=== PATIENT | female | born 1960 | race Hispanic/Latino ===

== ENCOUNTER 2016-10-15 10:30 | Outpatient (CLI) | payer BC ==
[2016-10-15 11:23] LABS: #Basophils 0.1 thou/uL (0.0-0.2); #Eosinphils 0.4 thou/uL (0.0-0.7); #Lymphocytes 1.5 thou/uL (1.20-3.40); #Monocytes 0.5 thou/uL (0.11-0.59); #Neutrophils 3.6 thou/uL (1.40-6.50); %Basophils 1.2 % (0.0-1.0); %Lymphocytes 24.2 % (21.0-51.0); %Monocytes 7.9 % (0.0-10.0); %Neutrophils 59.7 % (42.0-75.0); Hemoglobin 14.1 g/dL (12.0-16.0); Mean Corpuscular HGB CONC 33.7 g/dL (32.0-36.0); Mean Corpuscular Hemoglobin 31.1 pg (27.0-31.0); Mean Corpuscular Volume 92.3 fl (81.0-99.0); Mean Platelet Volume 7.6 fL (7.4-10.4); Platelet Count 199 thou/uL (130-400); RBC Distribution Width 11.8 % (11.5-14.5); Red Blood Cell (RBC) Count 4.53 mill/uL (4.20-5.40); White Blood Cell (WBC) Count 6.1 thou/uL (4.8-10.8)
[2016-10-15 11:40] LABS: ALT (SGPT) 38 U/L (8-55); AST (SGOT) 26 U/L (5-34); Albumin 4.3 g/dL (3.5-5.0); Alkaline Phosphatase 89 U/L (40-150); Anion Gap 13 mmol/L (10-20); BUN (Urea Nitrogen) 9 mg/dL (9.8-20.1); Bilirubin, Total 0.6 mg/dL (0.2-1.2); Calc. Creatinine Clearance 0 mL/min (70-130); Calcium 9.3 mg/dL (7.8-10.44); Carbon Dioxide 26 mmol/L (22-29); Cardiac Risk 2.9 (Less than 4.5); Chloride 107 mmol/L (98-107); Cholesterol 148 mg/dl (< 200 Desired); Estimated GFR-MDRD 88; Globulin 3.2 g/dL (2.4-3.5); Glucose 87 mg/dL (70-105); HDL Cholesterol 51 mg/dL (>60 Neg Risk); LDL Cholesterol, Calculated 83 mg/dL; Potassium 4.3 mmol/L (3.5-5.1); Protein, Total 7.5 g/dL (6.0-8.3); Sodium 142 mmol/L (136-145); Triglycerides 68 mg/dL (Less than 150)
== END 2016-10-15 10:31 | disposition home or self-care (01) ==
LOC: HPCALD 10:30
PROVIDERS: ATTEND Physician Assistant
DX: I10 Essential (primary) hypertension (principal)
CPT/HCPCS: 36415; 80053; 80061; 84443; 85025

== ENCOUNTER 2017-02-03 13:17 | Outpatient (CLI) | payer BC ==
--- NOTE | 2017-02-03 16:51 | RAD ---
CHEST TWO VIEWS 02/03/17 PA and lateral views show a left lower lobe consolidation consistent with pneumonia. The right lung i s clear. The heart is normal in size. The trachea is midline. IMPRESSION: Left lower lobe pneumonia. POS: HOME
== END 2017-02-03 13:18 | disposition home or self-care (01) ==
LOC: BURRAD 13:17
PROVIDERS: ATTEND Physician Assistant
DX: R69 Illness, unspecified (principal); J18.9 Pneumonia, unspecified organism
CPT/HCPCS: 71020

== ENCOUNTER 2019-04-12 01:33 | Emergency (ER) | payer BC ==
[2019-04-12] MEDS ORDERED: Lisinopril 20 MG TAB ONE (01:56)
[2019-04-12] MEDS ORDERED: hydrOXYzine 25 MG TAB ONE (01:56)
== END 2019-04-12 02:08 | disposition home or self-care (01) ==
LOC: BURERS 01:33
DX: J01.90 Acute sinusitis, unspecified (principal); F41.9 Anxiety disorder, unspecified; I10 Essential (primary) hypertension; Z79.899 Other long term (current) drug therapy; Z79.51 Long term (current) use of inhaled steroids
CPT/HCPCS: 99283